=== PATIENT | female | born 1980 | race African-American/Black ===

== ENCOUNTER 2019-02-20 13:48 | Inpatient (IN) ==
[2019-02-20] MEDS ORDERED: ACETAMINOPHEN 325 MG TABLET PO PRN (16:09)
[2019-02-20] MEDS ORDERED: cloNIDine 0.1 MG TABLET PO PRN (16:10)
[2019-02-20] MEDS ORDERED: rOPINIRole 1 MG TABLET PO PRN (16:10)
[2019-02-20] MEDS ORDERED: DICYCLOMINE 20 MG TABLET PO PRN (16:10)
[2019-02-20] MEDS ORDERED: METHOCARBAMOL 750 MG TABLET PO PRN (16:10)
[2019-02-20] MEDS ORDERED: HydrOXYzine PAMOATE 50 MG CAPSULE PO PRN (16:10)
[2019-02-20] MEDS ORDERED: chlordiazePOXIDE 25 MG CAPSULE PO SCH (16:30)
[2019-02-20 16:46] LABS: Basophils # 0.1 10*3/uL (0.0-0.2); Basophils % 0.4 % (0.0-0.8); Eosinophils # 0.3 10*3/uL (0.0-0.87); Eosinophils % 2.2 % (0.00-10.9); Hematocrit 29.1 VOL% (35.7-47.0); Hemoglobin 9.9 GM/DL (12.0-16.0); Immature Granulocytes % 0.3 %; Immature Granulocytes Absolute 0.05 #; Lymphocytes # 5.5 10*3/uL (1.4-4.0); Lymphocytes % 37.6 % (21.3-54.2); Mean Corpuscular Volume 69.3 FL (87-102); Mean Platelet Volume 8.5 FL (9.6-12.0); Monocytes % 4.9 % (1.7-12.7); Neutrophils % 54.6 % (38.7-73.9); Platelet Count 501 T/CUMM (130-400); Red Cell Distribution Width 19.1 % (9.3-17.3); White Blood Count 14.5 T/CUMM (4-12)
[2019-02-20 17:01] LABS: Alanine Aminotransferase 10 U/L (13-56); Alkaline Phosphatase 96 U/L (45-117); Aspartate Amino Transferase 6 U/L (0-37); Bilirubin,Total < 0.39 MG/DL (0.2-1.0); Blood Urea Nitrogen 6 MG/DL (7-18); Calcium 8.6 MG/DL (8.5-10.1); Estimated Glom Filtration Rate 146 ML/MIN; Glucose 95 MG/DL (74-106); Osmolality,Calculated 280.1 MOS/KG (273-304); Total Protein 8.3 G/DL (6.4-8.3)
[2019-02-20] MEDS: BUPRENORPHINE SL TAB 2 MG TABLET SL SCH ×2 (18:19→23:49)
[2019-02-20] MEDS: SODIUM CHLORIDE 0.9% 1,000 ML IV SCH (18:19)
[2019-02-20] MEDS: NICOTINE 21 MG/24 HR PATCH TRANSDERM SCH (20:46)
[2019-02-20] MEDS: ACYCLOVIR 200 MG CAPSULE PO SCH (20:48)
[2019-02-20] MEDS: ENOXAPARIN 40 MG/0.4 ML SYRINGE SUBCUT SCH (20:49)
[2019-02-21 05:06] LABS: Basophils # 0.1 10*3/uL (0.0-0.2); Basophils % 0.4 % (0.0-0.8); Eosinophils # 0.3 10*3/uL (0.0-0.87); Eosinophils % 2.2 % (0.00-10.9); Hematocrit 26.3 VOL% (35.7-47.0); Hemoglobin 8.9 GM/DL (12.0-16.0); Immature Granulocytes % 0.3 %; Immature Granulocytes Absolute 0.04 #; Lymphocytes # 5.7 10*3/uL (1.4-4.0); Lymphocytes % 45.7 % (21.3-54.2); Mean Corpuscular HGB Conc 33.8 GM/DL (32-36); Mean Platelet Volume 8.7 FL (9.6-12.0); Monocytes % 5.4 % (1.7-12.7); Platelet Count 472 T/CUMM (130-400); Red Blood Count 3.81 MC/CUMM (3.8-5.5); Red Cell Distribution Width 18.6 % (9.3-17.3); White Blood Count 12.5 T/CUMM (4-12)
[2019-02-21 05:29] LABS: Albumin 2.7 G/DL (3.4-5.0); Bilirubin,Total 0.8 MG/DL (0.2-1.0); Calcium 8.4 MG/DL (8.5-10.1); Osmolality,Calculated 280.1 MOS/KG (273-304); Risk Ratio 3.64; Thyroid Stimulating Hormone 1.49 uIU/ml (0.358-3.74); Total Protein 7.4 G/DL (6.4-8.3); VLDL CHOLESTEROL 16.6 MG/DL
[2019-02-21] MEDS ORDERED: INFLUENZA VIRUS VACCINE 0.5 ML SYRINGE IM ONE (07:10)
[2019-02-21] MEDS: NICOTINE 21 MG/24 HR PATCH TRANSDERM SCH (09:15)
[2019-02-21] MEDS: PANTOPRAZOLE 40 MG TABLET PO SCH (09:15)
[2019-02-21] MEDS: POTASSIUM CHLORIDE 20 MEQ TABLET PO PRN ×3 (09:15→21:13)
[2019-02-21] MEDS: BUPRENORPHINE SL TAB 2 MG TABLET SL SCH ×2 (09:15→16:44)
[2019-02-21] MEDS: ACYCLOVIR 200 MG CAPSULE PO SCH ×3 (09:15→21:12)
[2019-02-21] MEDS: FLUoxetine 20 MG CAPSULE PO SCH (09:15)
[2019-02-21 11:05] LABS: Apearance,Urine Slightly Hazy (Clear); Bacteria,Urine Few /HPF (Few); Bilirubin,Urine Negative (Negative); Blood, Urine Moderate mg/dL (Negative); Glucose,Urine (UA) Negative (Negative); Ketones,Urine Negative (Negative); Mucus,Urine Occasional /LPF (Occasional); Nitrite,Urine Negative (Negative); Protein,Urine Negative; RBC,Urine 46 /HPF (0-4); Squamous Epithelial Cell,Urine Occasional /HPF (0-10); Urine Color Yellow (Yellow); Urine Specific Gravity 1.014 (1.001-1.035); Urine Urobilinogen < 2.0 EU/DL (0.2-1.0); WBC,Urine 5 /HPF (0-6)
[2019-02-21] MEDS: SODIUM CHLORIDE 0.9% 1,000 ML IV SCH (11:05)
[2019-02-21 11:21] LABS: Barbiturates Screen,Urine Negative (Negative); Benzodiazepines Screen,Urine Negative (Negative); Cannabinoid Screen,Urine Negative (Negative); Opiate Screen,Urine Negative (Negative); Phencyclidine Screen,Urine Negative (Negative)
[2019-02-21] MEDS: ONDANSETRON 4 MG/2 ML VIAL IV PRN (19:56)
[2019-02-21] MEDS: ENOXAPARIN 40 MG/0.4 ML SYRINGE SUBCUT SCH (21:13)
[2019-02-21] MEDS: DOXYCYCLINE HYCLATE 100 MG CAPSULE PO SCH (21:13)
[2019-02-21] MEDS: traZODone 50 MG TABLET PO PRN (21:14)
[2019-02-22] MEDS: BUPRENORPHINE SL TAB 2 MG TABLET SL SCH ×3 (00:37→15:41)
[2019-02-22] MEDS: POTASSIUM CHLORIDE 20 MEQ TABLET PO PRN (00:37)
[2019-02-22] MEDS: ONDANSETRON 4 MG/2 ML VIAL IV PRN ×4 (05:25→22:51)
[2019-02-22] MEDS: SODIUM CHLORIDE 0.9% 1,000 ML IV SCH (05:29)
[2019-02-22 06:58] LABS: Basophils % 0.3 % (0.0-0.8); Eosinophils # 0.2 10*3/uL (0.0-0.87); Eosinophils % 1.6 % (0.00-10.9); Hematocrit 26.4 VOL% (35.7-47.0); Hemoglobin 8.7 GM/DL (12.0-16.0); Immature Granulocytes % 0.4 %; Immature Granulocytes Absolute 0.05 #; Lymphocytes # 4.9 10*3/uL (1.4-4.0); Lymphocytes % 43.4 % (21.3-54.2); Mean Corpuscular Volume 70.4 FL (87-102); Mean Platelet Volume 8.4 FL (9.6-12.0); Monocytes % 5.9 % (1.7-12.7); Neutrophils % 48.4 % (38.7-73.9); Platelet Count 458 T/CUMM (130-400); Red Blood Count 3.75 MC/CUMM (3.8-5.5); Red Cell Distribution Width 19.2 % (9.3-17.3); White Blood Count 11.3 T/CUMM (4-12)
[2019-02-22 07:35] LABS: Alanine Aminotransferase 10 U/L (13-56); Albumin 2.6 G/DL (3.4-5.0); Alkaline Phosphatase 82 U/L (45-117); Aspartate Amino Transferase 6 U/L (0-37); Bilirubin,Total < 0.39 MG/DL (0.2-1.0); Blood Urea Nitrogen 8 MG/DL (7-18); Calcium 8.5 MG/DL (8.5-10.1); Estimated Glom Filtration Rate 171 ML/MIN; Glucose 85 MG/DL (74-106); Osmolality,Calculated 277.3 MOS/KG (273-304); Total Protein 7.2 G/DL (6.4-8.3)
[2019-02-22] MEDS: FLUoxetine 20 MG CAPSULE PO SCH (09:12)
[2019-02-22] MEDS: DOXYCYCLINE HYCLATE 100 MG CAPSULE PO SCH ×2 (09:12→20:40)
[2019-02-22] MEDS: ACYCLOVIR 200 MG CAPSULE PO SCH ×3 (09:12→20:40)
[2019-02-22] MEDS: PANTOPRAZOLE 40 MG TABLET PO SCH (09:13)
[2019-02-22] MEDS: NICOTINE 21 MG/24 HR PATCH TRANSDERM SCH (09:14)
[2019-02-22] MEDS: ENOXAPARIN 40 MG/0.4 ML SYRINGE SUBCUT SCH (20:40)
[2019-02-22] MEDS: traZODone 50 MG TABLET PO PRN (20:40)
[2019-02-23] MEDS: BUPRENORPHINE SL TAB 2 MG TABLET SL SCH (04:12)
[2019-02-23 08:04] VITALS: BP 100/60
[2019-02-23] MEDS: NICOTINE 21 MG/24 HR PATCH TRANSDERM SCH (08:52)
[2019-02-23] MEDS: PANTOPRAZOLE 40 MG TABLET PO SCH (08:53)
[2019-02-23] MEDS: FLUoxetine 20 MG CAPSULE PO SCH (08:53)
[2019-02-23] MEDS: DOXYCYCLINE HYCLATE 100 MG CAPSULE PO SCH (08:53)
[2019-02-23] MEDS: ACYCLOVIR 200 MG CAPSULE PO SCH (08:53)
== END 2019-02-23 09:03 | disposition home or self-care (01) | DRG 772 ==
LOC: N.4E 14:00
PROVIDERS: ADMIT Internal Medicine; ATTEND Internal Medicine